=== PATIENT | female | born 1970 | race Caucasian/White ===

== ENCOUNTER → 2022-07-16 09:33 | Outpatient (CLI) | payer BC, SELFPAY ==
--- NOTE | ~2022-07-16 | XR_ITS ---
EXAMINATION: XR chest 2V DATE: 07/16/2022 09:45 INDICATION: Cough. Chest pressure. TECHNIQUE: Frontal and lateral views of the chest were obtained. COMPARISON: Chest 2 views 05/20/2015 FINDINGS: There is stable mild scarring at left lung apex. No pleural effusion or pneumothorax. The h eart size is normal. IMPRESSION: 1. Stable mild scarring at left lung apex. Reviewed, dictated and finalized at location A. 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
== END ==
PROVIDERS: PCP Internal Medicine; Visit Provider Internal Medicine
DX: R05.9 Cough, unspecified (principal)
CPT/HCPCS: 71046

== ENCOUNTER → 2023-08-10 08:29 | Outpatient (CLI) | payer BC, SELFPAY ==
--- NOTE | ~2023-08-10 | US_ITS ---
US abdomen limited INDICATION: Abnormal levels of serum enzymes PROCEDURE: Realtime right upper abdominal ultrasound. COMPARISON: No prior studies for comparison. FINDINGS: The pancreas is normal without focal mass or pancreatic ductal dilation. Liver echotexture is increased, consistent with fatty infiltration. There is normal directional flow in the portal ve in. The gallbladder is normal without stones, gallbladder wall thickening or pericholecystic fluid. Comm on bile duct measures 5 mm. No sonographic Yanez's sign. IMPRESSION: 1: Fatty infiltration of the liver. Reviewed, dictated and finalized at location B. 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
== END ==
PROVIDERS: PCP Internal Medicine; Visit Provider Internal Medicine
DX: R74.8 Abnormal levels of other serum enzymes (principal); K76.0 Fatty (change of) liver, not elsewhere classified
CPT/HCPCS: 76705

== ENCOUNTER 2023-11-22 12:29 | Outpatient (CLI) | payer OTHER, SELFPAY ==
--- NOTE | ~2023-11-22 | MM_ITS ---
EXAMINATION: MM screening flako BI w karen HISTORY: Screening mammogram TECHNIQUE: Craniocaudal and mediolateral oblique 3-D tomosynthesis images were obtained and synthetic 2-D images were generated. CAD analysis was submitted and interpreted. COMPARISON: No prior mammogram is available for comparison at this institution. BREAST PARENCHYMAL COMPOSITION: The breasts are heterogeneously dense, which may obscure small masses . FINDINGS: Right breast: There is no evidence of suspicious mass, calcification, or architectural dist ortion to suggest malignancy in the right breast.. Left breast: Suggestion of possible architectural distortion in the posterior medial left breast ([facility] niocaudal Tomosynthesis image 48/86). Diagnostic left mammogram is recommended, with ultrasound if re quired. IMPRESSION: 1. Possible architectural distortion in posterior inner left breast 2. Diagnostic left mammogram is recommended, with ultrasound if required BI-RADS Category 0: Incomplete: Needs additional imaging evaluation. Reviewed, dictated and finalized at location A.
== END 2023-11-22 12:30 ==
PROVIDERS: PCP Internal Medicine; Visit Provider Internal Medicine
DX: Z12.31 Encounter for screening mammogram for malignant neoplasm of breast (principal); R92.8 Other abnormal and inconclusive findings on diagnostic imaging of breast
CPT/HCPCS: 77063; 77067

== ENCOUNTER 2023-11-29 07:04 | Day surgery (SDC) | payer OTHER, SELFPAY ==
[2023-10-19 10:07] VITALS: BMI 33.3
--- NOTE | 2023-11-22 13:18 | PM.HPGS ---
History of Present Illness History of Present Illness Consent: Risks, benefits, and alternatives have been discussed and questions answered. Patient agrees to proceed with procedure. Chief complaint: Personal HX of colonic polyps Narrative: Evie Capellan is a 53 year old female Was referred for colon cancer screening. she had a small polyp removed 5 years ago. Review of Systems Review of Systems: All systems reviewed & are unremarkable except as noted in HPI and below PMFSH Past Medical History Medical History BMI 29.0-29.9,adult BMI 30.0-30.9,adult BMI 31.0-31.9,adult BMI 33.0-33.9,adult Breast cancer screening Colon cancer screening Encounter for preventive health examination Encounter for routine adult health examination with abnormal findings Encounter for routine adult health examination without abnormal findings Family history of heart disease Fatty liver GERD (gastroesophageal reflux disease) History of colon polyps Hot flashes Hypersomnolence Hypothyroidism (acquired) Insulin resistance Left wrist pain Mixed hyperlipidemia Multiple thyroid nodules On roasterman drug therapy RLS (restless legs syndrome) Tenosynovitis of left wrist Vasomotor instability Vitamin D deficiency Family History Family History Father Family history of thyroid disease Hypertension Grandparent Family history of thyroid disease Family history of osteoporosis Family history of arthritis Malignant neoplasm of prostate Family history of malignant neoplasm of uterus Social History Social History Smoking status: Never smoker Second hand tobacco smoke exposure: No Alcohol intake: current Substance use type: does not use Do You Feel Safe in your Home?: Yes Lack of Transportation: No Lack of Food: Never True Current Housing: I Have Housing Concerned About Future Housing: No Difficulty Paying Gas/Electric Bills: No Difficulty Paying for Meds: No Currently Unemployed: No Difficulty w/ Childcare or Family Care: No Living arrangements: with family Occupation/Education: occupation Gender identity (if verbalized by the patient): Female Meds Home Medications and Allergies Home Medications Medication Instructions Recorded Confirmed Type cholecalciferol (vitamin D3) 1,250 See Rx Instructions .Route 07/20/23 11/29/23 Rx mcg (50,000 unit) capsule .COMPLEX #10 caps cholecalciferol (vitamin D3) 50 50 mcg PO DAILY 07/20/23 11/29/23 History mcg (2,000 unit) capsule pravastatin 40 mg tablet 40 mg PO DAILY #90 tabs 07/25/23 11/29/23 Rx Synthroid 75 mcg tablet See Rx Instructions .Route 10/20/23 11/29/23 Rx (levothyroxine) .COMPLEX #90 tabs Allergies Allergy/AdvReac Type Severity Reaction Status Date / Time No Known Allergies Allergy Verified 11/29/23 07:50 Exam Resp: Auscultation: clear to auscultation bilaterally Cardio: Rate: regular rate Rhythm: regular rhythm GI: GI Palp: Yes Soft to palpation and No Tenderness to palpation present (GI) Assessment and Plan Assessment and plan (1) Colon cancer screening: Code(s): Z12.11 - Encounter for screening for malignant neoplasm of colon Status: Acute Assessment and Plan: Colonoscopy with possible biopsy or polypectomy or cautery or injection of substances.
[2023-11-29 07:52] VITALS: BP 135/84; PULSE 72; RESP 16; TEMP 37; O2SAT 99
--- NOTE | 2023-11-29 08:16 | WPDANESEPPF ---
Anes - Initial Pre Proc Eval Procedure: Operation Date: 11/29/23 09:00 Proposed Procedures p Diagnostic Colonoscopy - Jose Eduardo Morgan MD Date/Time: 11/29/23 08:16 Surgeon: Jose Eduardo Morgan MD Pre Op Diagnosis: Personal HX of colonic polyps Patient Data Age: 53 Gender: F Height: 1.68 m Weight: 91.7 kg Last Vital Signs Temp 37.0 C 11/29/23 07:52 Pulse 72 11/29/23 07:52 Resp 16 11/29/23 07:52 BP 135/84 11/29/23 07:52 Pulse Ox 99 11/29/23 07:52 O2 Del Method Room Air 11/29/23 07:52 Allergies Allergy/AdvReac Type Severity Reaction Status Date / Time No Known Allergies Allergy Verified 11/29/23 07:50 Home Medications Medication Instructions Recorded Confirmed Type cholecalciferol (vitamin D3) 1,250 See Rx Instructions .Route 07/20/23 11/29/23 Rx mcg (50,000 unit) capsule .COMPLEX #10 caps cholecalciferol (vitamin D3) 50 50 mcg PO DAILY 07/20/23 11/29/23 History mcg (2,000 unit) capsule pravastatin 40 mg tablet 40 mg PO DAILY #90 tabs 07/25/23 11/29/23 Rx Synthroid 75 mcg tablet See Rx Instructions .Route 10/20/23 11/29/23 Rx (levothyroxine) .COMPLEX #90 tabs Patient hx anesthesia problems: none Family hx anesthesia problems: other (n&v slow to awaken) Results Review: All pre-operative results and documents have been reviewed as part of the pre-operative evaluation. PENDING SALE TO [facility] Past Medical History Medical History BMI 29.0-29.9,adult BMI 30.0-30.9,adult BMI 31.0-31.9,adult BMI 33.0-33.9,adult Breast cancer screening Colon cancer screening Encounter for preventive health examination Encounter for routine adult health examination with abnormal findings Encounter for routine adult health examination without abnormal findings Family history of heart disease Fatty liver GERD (gastroesophageal reflux disease) History of colon polyps Hot flashes Hypersomnolence Hypothyroidism (acquired) Insulin resistance Left wrist pain Mixed hyperlipidemia Multiple thyroid nodules On nursing home drug therapy RLS (restless legs syndrome) Tenosynovitis of left wrist Vasomotor instability Vitamin D deficiency Family History Family History Father Family history of thyroid disease Hypertension Grandparent Family history of thyroid disease Family history of osteoporosis Family history of arthritis Malignant neoplasm of prostate Family history of malignant neoplasm of uterus Social History Social History Smoking status: Never smoker Second hand tobacco smoke exposure: No Alcohol intake: current Substance use type: does not use Do You Feel Safe in your Home?: Yes Lack of Transportation: No Lack of Food: Never True Current Housing: I Have Housing Concerned About Future Housing: No Difficulty Paying Gas/Electric Bills: No Difficulty Paying for Meds: No Currently Unemployed: No Difficulty w/ Childcare or Family Care: No Living arrangements: with family Occupation/Education: occupation Gender identity (if verbalized by the patient): Female Anes - Eval Final PreProcedure Day of Procedure 11/29/23 08:16 Patient weight: overweight Heart: regular rate and rhythm Lungs: clear to auscultation Airway: Mallampati scale class II Neurological: alert and oriented Last oral intake: >/= 8 hours ASA classification: II Emergent: no Anesthetic plan: proceed Anesthesia type and monitoring: general GIVS and standard monitoring Results Review: All pre-operative results and documents have been reviewed as part of the pre-operative evaluation. Informed Consent: The patient's anesthetic plan and its attendant risks and benefits were discussed with the patient/family/POA. Questions were solicited and answers provided to the satisfaction of the patient/family/POA.
[2023-11-29] MEDS: LACTATED RINGERS 1,000 ML 150 ML IV CONT (08:20)
[2023-11-29] MEDS: SIMETHICONE ORAL SUSPENSION 20 MG/0.3 ML 30 ML BOTTLE 0.6 ML IRRIGATION (08:55)
[2023-11-29 09:00] VITALS: BP 112/91; PULSE 71; RESP 14; O2SAT 98
[2023-11-29 09:10] VITALS: BP 106/70; PULSE 64; RESP 16; O2SAT 100
[2023-11-29 09:20] VITALS: BP 107/72; PULSE 100; RESP 20; O2SAT 100
--- NOTE | 2023-11-29 10:24 | WPDANESPN ---
Anes - Prog Note Post-Op Date/Time: 11/29/23 10:24 Cardiovascular status: normal Respiratory status: normal Airway patency: baseline Mental status: baseline Post-Op hydration status: normal Vital Signs: Last Vital Signs Temp 37.0 C 11/29/23 07:52 Pulse 100 11/29/23 09:20 Resp 20 11/29/23 09:20 BP 107/72 11/29/23 09:20 Pulse Ox 100 11/29/23 09:20 O2 Del Method Room Air 11/29/23 09:20 Pain Score (VAS): 0 I/O: Intake & Output 11/28/23 11/29/23 11/29/23 23:59 07:59 15:59 Intake Total 700 Balance 700 Patient Feedback: Patient satisfied with anesthetic care.
== END 2023-11-29 09:27 | disposition home or self-care (01) ==
PROVIDERS: PCP Internal Medicine; Visit Provider Internal Medicine Gastroenterology
PROC: 0DJD8ZZ Inspection of Lower Intestinal Tract, Via Natural or Artificial Opening Endoscopic (ICD-10-PCS; CPT 45378; principal; 2023-11-29 09:00)
DX: Z12.11 Encounter for screening for malignant neoplasm of colon (principal); D12.8 Benign neoplasm of rectum
CPT/HCPCS: 45380

== ENCOUNTER 2023-11-29 08:00 | Outpatient (NON) | payer OTHER, SELFPAY | END 2023-11-29 08:01 | disposition home or self-care (01) | PROVIDERS: PCP Internal Medicine; Visit Provider Internal Medicine Gastroenterology | DX: Z86.010 Personal history of colon polyps (principal) | CPT/HCPCS: 88305 ==

== ENCOUNTER 2023-12-21 09:29 | Outpatient (CLI) | payer OTHER, SELFPAY ==
--- NOTE | ~2023-12-21 | MMUS_ITS ---
EXAMINATION: MM diagnostic flako LT w karen, US breast LT complete HISTORY: Asymmetry and possible architectural distortion in medial left breast reported on November 21 024 screening mammogram examination TECHNIQUE: Additional 3-D tomosynthesis images of the left breast were performed and synthetic 2-D im ages were generated. CAD analysis was submitted and interpreted. High resolution complete left breast ultrasound examination including all 4 quadrants and subareolar area was performed. COMPARISON: November 22, 2023, February 14, 2018, November 24, 2015 bilateral screening mammogram examinations FINDINGS: MAMMOGRAPHIC FINDINGS: There is return to baseline appearance at the posterior inner aspect of the left breast compared to p rior serial mammograms dating back to November 24, 2015. No suspicious mass or interval architectural distortion or any malignant calcification, skin thickeni ng or retraction is noted. The heterogeneously dense fibroglandular stroma may obscure small masses. Complete ultrasound examina tion was performed. ULTRASOUND: At 9:00 5 cm from the nipple at the previously noted area of concern on the mammogram in the posterio r inner left breast there is some dense stroma with ill-defined shadowing, without discrete mass lesi on. Six-month follow-up diagnostic left mammogram and left breast ultrasound examination are recommen ded. IMPRESSION: 1. Probably benign findings 2. Six-month diagnostic left mammogram and targeted 9:00 left breast ultrasound follow-up recommended BI-RADS category 3, probably benign findings. Reviewed, dictated and finalized at location B. IMPRESSION: 1. Probably benign findings 2. Six-month diagnostic left mammogram and targeted 9:00 left breast ultrasound follow-up recommended BI-RADS category 3, probably benign findings.
== END 2023-12-21 09:30 ==
LOC: MICIMG 09:31
PROVIDERS: PCP Internal Medicine; Visit Provider Internal Medicine
DX: R92.8 Other abnormal and inconclusive findings on diagnostic imaging of breast (principal)
CPT/HCPCS: 76641; 77061; 77065; G0279

== ENCOUNTER 2024-03-07 11:42 | Outpatient (CLI) | payer OTHER, SELFPAY ==
--- NOTE | ~2024-03-07 | US_ITS ---
EXAMINATION: US thyroid DATE: 03/07/2024 11:57 INDICATION: Multinodular goiter TECHNIQUE: Multiple ultrasound images of the thyroid were obtained. COMPARISON: None. FINDINGS: The right thyroid lobe measures 4.1 x 1.5 x 1.1 cm. The left thyroid lobe measures 3.5 x 1.2 x 1.1 c m. 6 mm wider than tall solid isoechoic nodule with ill-defined margins and without echogenic foci i n the mid right thyroid lobe measures (TI-RADS 3, mildly suspicious , FNA if >=2.5 cm, annual followu p is >=1.5 cm). There is a 5 mm solid hypoechoic nodule with ill-defined margins and without echogeni c foci at the superior right thyroid lobe. (TI-RADS 4, moderately suspicious , FNA if >=1.5 cm, annua l followup is >=1 cm). Coarsened echotexture throughout the remainder of the thyroid. IMPRESSION: 1. A couple 6 mm or smaller nodules in the right thyroid lobe which remain well below threshold for e ither biopsy or follow-up. Reviewed, dictated and finalized at location A. IMPRESSION: 1. A couple 6 mm or smaller nodules in the right thyroid lobe which remain well below threshold for either biopsy or follow-up.
== END 2024-03-07 11:43 ==
LOC: MICIMG 11:42
PROVIDERS: PCP Internal Medicine; Visit Provider Internal Medicine
DX: E04.2 Nontoxic multinodular goiter (principal); R91.8 Other nonspecific abnormal finding of lung field
CPT/HCPCS: 76536

== ENCOUNTER 2024-06-22 11:08 | Outpatient (CLI) | payer OTHER, SELFPAY ==
--- NOTE | ~2024-06-22 | MMUS_ITS ---
EXAMINATION: US breast LT complete, MM diagnostic flako LT w karen HISTORY: Follow-up left breast mass TECHNIQUE: Additional 3-D tomosynthesis images of the left breast were performed and synthetic 2-D im ages were generated. CAD analysis was submitted and interpreted. High resolution complete left breast ultrasound was performed. COMPARISON: Comparison to multiple prior studies sequentially, with oldest reviewed study dated 11/23. BREAST PARENCHYMAL COMPOSITION: Dense: The breasts are heterogeneously dense, which may obscure small masses FINDINGS: MAMMOGRAPHIC FINDINGS: There are no suspicious masses, calcifications or architectural distortion in the left breast to sug gest malignancy. ULTRASOUND: Complete US of all 4 quadrants of the left breast/s and retroareolar region was reviewed. Normal hete rogeneous echotexture without focal solid or cystic mass. IMPRESSION: 1. No evidence for malignancy in the left breast. 2. Routine yearly screening mammogram and regular clinical breast examination are recommended. BI-RADS Category 1: Negative Reviewed, dictated and finalized at location B. 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 No evidence for malignancy in the left breast. 2. Routine yearly screening mammogram and regular clinical breast examination a re recommended. BI-RADS Category 1: Negative
== END 2024-06-22 11:09 | disposition home or self-care (01) ==
LOC: MICIMG 11:09
PROVIDERS: PCP Internal Medicine; Visit Provider Internal Medicine
DX: R92.8 Other abnormal and inconclusive findings on diagnostic imaging of breast (principal)
CPT/HCPCS: 76641; 77061; 77065; G0279

== ENCOUNTER 2024-09-05 14:28 | Outpatient (CLI) | payer OTHER, SELFPAY ==
--- NOTE | ~2024-09-05 | XR_ITS ---
EXAMINATION: XR chest 2V DATE: 09/05/2024 14:51 INDICATION: Cough, unspecified. TECHNIQUE: Frontal and lateral views of the chest were obtained. COMPARISON: Chest 2 views 07/16/2022 FINDINGS: There is stable mild scarring at the lung apices. There is no pneumonia, pleural effusion, or pneumothorax. The heart size is normal. IMPRESSION: 1. Stable mild scarring at the lung apices. Reviewed, dictated and finalized at location B. 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
--- OUTSIDE RECORDS SUMMARY | 2024-09-07 02:14 | XMS_ITS | Referral Summary ---
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 Gender Identity Not on file Sexual Orientation Not on file Last Filed Vital Signs Vital Sign Reading Time Taken Comments Blood Pressure - - Pulse - - Temperature - - Respiratory Rate - - Oxygen Saturation - - Inhaled Oxygen Concentration - - Weight - - Height 167.6 cm (5' 6 ) 02/14/2018 3:30 PM CDT Body Mass Index - - Plan of Treatment Not on file Insurance [employer] CHO[employer] Member Subscriber Plan / Payer (Ef fective 2020-Present) Name:Evie Capellan Relation to Subscriber:Self Name:Evie Capellan Payer ID:[id number] (NAIC) Type:[facility] Address: [facility] [id number] [id number] Care Teams Buckle Frame Shaper Relationship Specialty Start Date End Date Augusto Ortiz MD [address] [facility] [address] [place] [address] PCP - General 02/10/18
--- OUTSIDE RECORDS SUMMARY | 2024-09-07 02:14 | XMS_ITS | Clinical Summary ---
Author Organization [address] Address [address] [place] [address] Care Team Providers Care Capacity Management Specialist Name Role Phone Augusto Ortiz MD Primary Care Provider [phone] Allergies Active Allergy Reactions Criticality Noted Date Comments Amoxicillin Rash Reaction: Rash, Surgical History Surgery Date Site/Laterality Comments OTHER SURGICAL HISTORY 08/15/1995 - 08/14/1996 : 2 hr labor OTHER SURGICAL HISTORY 08/15/1999 - 08/14/2000 : 1 hr labor OTHER SURGICAL HISTORY 08/15/2003 - 08/14/2004 : 2 hr labor Medical History Medical History Date Comments Hx Other Medical 1995 ; Outc ome: 39 week 8 lb(s) 3 oz Male Hx Other Medical 1999 ; Outc ome: 38 week 7 lb(s) 14 oz Female Hx Other Medical 2003 ; Outc ome: 36 week 6 lb(s) Male Family History Medical History Relation Name Comments Breast cancer Father's Sister gautam Asthma Other 1 Family history of Asthma; Hyperlipidemia Other 2 Family histor y of Hyperlipidemia; Hypertension Other 3 Family history of Hypertension; Thyroid disease Other 4 Family histo ry of Thyroid disease; Other Other 5 Family history of Cancer, cervical; COPD Other 6 Family history of COPD; Relation Name Status Comments Father's Sister gautam Alive Other 1 Other 2 Other 3 Other 4 Other 5 Other 6 Social History Tobacco Use Types Packs/Day Years Used Date Smoking Tobacco: Never Assessed Alcohol Use Standard Drinks/Week Comments No 0 (1 standard drink = 0.6 oz pur e alcohol) Comments No Sex and Gender Information Value Date Recorded Sex Assigned at Not on file 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 Gender Identity Not on file Sexual Orientation Not on file Obstetrics History Para Term AB IAB SAB Ectopic Multiple Livin g Live Births 3 3 3 Date Outcome GA Total Labor Labor/2nd/3rd Weight Sex Type Anes PTL Brandi A1 A5 Name Clin Term Term Term Last Filed Vital Signs Vital Sign Reading Time Taken Comments Blood Pressure - - Pulse - - Temperature - - Respiratory Rate - - Oxygen Saturation - - Inhaled Oxygen Concentration - - Weight - - Height 167.6 cm (5' 6 ) 02/14/2018 3:30 PM CDT Body Mass Index - - Plan of Treatment Not on file Insurance [employer] CHO[employer] Care Teams Capacity Management Specialist Relationship Specialty Start Date End Date Augusto Ortiz MD [address] [place] [address] PCP - General 02/10/18
== END 2024-09-05 14:29 | disposition home or self-care (01) ==
LOC: ANHIMG 14:30
PROVIDERS: PCP Internal Medicine; Visit Provider Internal Medicine
DX: R05.9 Cough, unspecified (principal); R91.8 Other nonspecific abnormal finding of lung field
CPT/HCPCS: 71046

== ENCOUNTER 2024-10-25 16:33 | Outpatient (CLI) | payer OTHER, SELFPAY ==
--- NOTE | ~2024-10-25 | US_ITS ---
EXAMINATION: US thyroid DATE: 10/25/2024 16:56 INDICATION: Hypothyroidism. TECHNIQUE: Multiple ultrasound images of the thyroid were obtained. COMPARISON: Thyroid ultrasound 03/07/2024 FINDINGS: The right thyroid lobe measures 3.4 x 1.4 x 0.9 cm. The left thyroid lobe measures 3.5 x 0.9 x 1.2 c m. In the right thyroid lobe, there is a 4 mm nodule. In the thyroid isthmus, there is a 5 mm solid, very hypoechoic, wider than tall nodule with smooth margin without echogenic foci (TI-RADS TR4). In the left thyroid lobe, there is a 5 mm solid, very hypoechoic, wider than tall nodule with ill-define d margin without echogenic foci (TR4). IMPRESSION: 1. Small thyroid nodules, likely not clinically significant. No follow-up is needed. Reviewed, dictated and finalized at location L. IMPRESSION: 1. Small thyroid nodules, likely not clinically significant. No follow-up is ne eded.
== END 2024-10-25 16:34 | disposition home or self-care (01) ==
LOC: MICIMG 16:34
PROVIDERS: PCP Internal Medicine; Visit Provider Internal Medicine
DX: E03.9 Hypothyroidism, unspecified (principal); E04.2 Nontoxic multinodular goiter
CPT/HCPCS: 76536